=== PATIENT | male | born 1970 | race Caucasian/White ===

== ENCOUNTER → 2017-06-01 | Outpatient (CLI) | payer BC ==
[2017-06-01 13:35] LABS: HEMOGLOBIN 13.8 g/dL (14.1-18.0); LYMPH # 1.6 K/mm3 (0.7-4.5); LYMPH % 23.9 % (10-50)
[2017-06-01 13:54] LABS: BUN 14 mg/dL (7-18); GFR (ESTIMATED) 103 ML/MIN (>60)
[2017-06-02 09:38] LABS: Vitamin B12 302 pg/mL (232-1245)
[2017-06-02 14:40] LABS: EBV Ab VCA, IgG <18.0 U/mL (0.0-17.9); EBV Ab VCA, IgM <36.0 U/mL (0.0-35.9); EBV Nuclear Antigen Ab, IgG <18.0 U/mL (0.0-17.9)
== END ==
LOC: CARL-LAB 07:07
PROVIDERS: Internal Medicine Adolescent Medicine
DX: M79.1 Myalgia (principal); R53.83 Other fatigue; Z00.00 Encounter for general adult medical examination without abnormal findings